=== PATIENT | male | born 1975 | race Caucasian/White ===

== ENCOUNTER → 2017-02-14 | Outpatient (CLI) | payer BC ==
[~2017-02-14] MED LIST: ACET-1256 PO; EFFSR75 PO; GLUCTAB18 PO; IBUP-1449 PO; LITH1TAB10 PO; MULT-506 PO; NICO2GUM7; OMEG10007 PO; OSTEO BI-FLEX; OXYC-57 PO; PRLSR20 PO; QUET-206 PO; QUET1TAB37 PO; ZNTT/150 PO
--- NOTE | 2017-02-14 10:56 | DIAGNOSTIC IMAGING REPORT ---
LUMBAR SPINE 5 VIEWS HISTORY: Pain ABDOMINAL PAIN COMPARISON: 10/15/2014 FINDINGS: There is no fracture. No subluxation. Mild degenerative disc change throughout. IMPRESSION: Mild degenerative disc change. No acute process. No change from the prior study. Electronically signed by: Matt Roberts M.D. 02/14/2017 10:55 AM Dictated Date/Time: 02/14/2017 10:54 AM
--- NOTE | 2017-02-14 11:03 | DIAGNOSTIC IMAGING REPORT ---
KUB CLINICAL HISTORY: Generalized abdominal pain. FINDINGS: An AP supine abdominal radiograph is obtained No prior studies are available for comparison at the time of dictation. There is a nonobstructed abdominal bowel gas pattern. No evidence of intraperitoneal free air is seen on this supine view. There is no radiographic evidence of nephrolithiasis. Small phleboliths are noted in the pelvis. The bony structures appear intact. IMPRESSION: No acute abnormality is identified. Electronically signed by: Jorge Jaimes M.D. 02/14/2017 11:01 AM Dictated Date/Time: 02/14/2017 11:00 AM
[2017-02-14 12:52] LABS: BASO % 0.1 %; BASO ABS # 0.01 K/uL (0-0.2); COMPLETE YES; EOS % 1.3 %; IG% 0.4 %; LYMPH % 21.5 %; LYMPH ABS # 1.65 K/uL (1.2-3.4); MEAN CELL VOLUME 88.5 fL (80-100); MEAN CORPUSCULAR HEMOGLOBIN 31.3 pg (25-34); MEAN CORPUSCULAR HGB CONC 35.4 g/dl (32-36); MEAN PLATELET VOLUME 10.4 fL (7.4-10.4); MONO % 7.4 %; NEUT % 69.3 %; PLATELET COUNT 213 K/uL (130-400); WHITE BLOOD COUNT 7.66 K/uL (4.8-10.8)
[2017-02-14 13:03] LABS: PARTIAL THROMBOPLASTIN RATIO 1.1; PROTHROMBIN TIME (PATIENT) 10.8 SECONDS (9.0-12.0)
[2017-02-14 13:29] LABS: CALCIUM 9.4 mg/dl (8.5-10.1)
[2017-02-14 13:30] LABS: ALT/SGPT 43 U/L (12-78); AMYLASE 61 U/L (25-115); AST/SGOT 20 U/L (15-37); BLOOD UREA NITROGEN 20 mg/dl (7-18); BUN/CREATININE RATIO 15.2 (10-20); CARBON DIOXIDE 27 mmol/L (21-32); CHLORIDE 106 mmol/L (98-107); CHOLESTEROL 218 mg/dl (0-200); GLUCOSE 98 mg/dl (70-99); POTASSIUM 4.5 mmol/L (3.5-5.1); SODIUM 140 mmol/L (136-145); TRIGLYCERIDES 216 mg/dl (0-150); VERY LOW DENSITY LIPOPROT CALC 43 mg/dl
[2017-02-14 13:31] LABS: ALB/GLOB RATIO 1.5 (0.9-2); ALKALINE PHOSPHATASE 75 U/L (45-117); CHOLESTEROL/HDL RATIO 5.3; HDL CHOLESTEROL 41 mg/dl; LDL CHOLESTEROL CALCULATED 134 mg/dl
== END | disposition home or self-care (01) ==
LOC: C.LABPVFM 10:22
PROVIDERS: ATTEND Family Medicine
DX: R10.9 Unspecified abdominal pain (principal); E78.2 Mixed hyperlipidemia; K62.5 Hemorrhage of anus and rectum

== ENCOUNTER → 2017-02-15 | Outpatient (CLI) | payer BC ==
--- NOTE | 2017-02-15 09:58 | DIAGNOSTIC IMAGING REPORT ---
ABDOMINAL ULTRASOUND COMPLETE HISTORY: Generalized abdominal pain.. COMPARISON: None. FINDINGS: Pancreas: The pancreas demonstrates a normal echotexture. Liver: No hepatic masses. Small echogenic area near the diego hepatis favors focal fat. Gallbladder: Multiple polyps seen throughout the gallbladder with the largest measuring 1 cm. There are greater than 10 polyps. CBD: 3 mm. Kidneys: No hydronephrosis. Spleen: Enlarged measuring 14.5 cm in length. Aorta: Normal in caliber. IVC: Patent. IMPRESSION: 1. Splenomegaly. 2. Multiple gallbladder polyps with the largest measuring 1 cm. Surgical consultation is advised. Electronically signed by: Manny Rg M.D. 02/15/2017 9:57 AM Dictated Date/Time: 02/15/2017 9:54 AM
== END | disposition home or self-care (01) ==
LOC: C.ULTR 08:59
PROVIDERS: ATTEND Family Medicine
DX: R10.9 Unspecified abdominal pain (principal); R16.1 Splenomegaly, not elsewhere classified

== ENCOUNTER 2017-03-29 10:44 | Day surgery (SDC) | payer BC ==
[2017-03-20 15:35] VITALS: BMI 26.0
[~2017-03-29] VITALS: Ht 188 cm; Wt 94.0 kg
[~2017-03-29 10:44] MED LIST changes: -EFFSR75 PO; +LACTATED RINGER'S 1000ML 1,000 ML IV SCH; -LITH1TAB10 PO; -NICO2GUM7; -OMEG10007 PO; -OSTEO BI-FLEX; -OXYC-57 PO; -QUET-206 PO; -QUET1TAB37 PO; -ZNTT/150 PO
[2017-03-29 10:58] VITALS: BP 132/72; PULSE 68; TEMP 36.8; O2SAT 94; Ht 188 cm; Wt 94.0 kg
[2017-03-29] MEDS ORDERED: FENTANYL CITRATE INJ 50 MCG/1 ML 2 ML VIAL ONE (14:53)
[2017-03-29] MEDS ORDERED: MIDAZOLAM HCL 1 MG/ML 2ML VIAL ONE (14:53)
--- NOTE | 2017-03-29 15:32 | History & Physical Bridge Note ---
H&P Re-Evaluation Bridge Note: I have examined the patient, reviewed the History & Physical and in the interval since the performance of the History & Physical I have noted the following changes of clinical significance: No changes noted pt seen SO at bedside
[2017-03-29] MEDS ORDERED: CONRAY 60% 50 ML VIAL ONE (15:39)
[2017-03-29] MEDS ORDERED: LIDOCAINE/EPINEPHRINE 1% 20 ML VIAL ONE (15:39)
--- NOTE | 2017-03-29 15:41 | Discharge Instructions ---
Discharge Instructions Date of Service Mar 29, 2017. Visit Reason for Visit: Gallbladder Polyp Discharge Discharge Diagnosis / Problem: laparoscopic cholecystectomy Discharge Goals Goal(s): Decrease discomfort Activity Recommendations Activity Limitations: as noted below Lifting Limitations: no more than 10 pounds Shower/Bathe: tomorrow Driving or Machine Use: resume 3 days after discharge Anesthesia . Post Anesthesia Instructions: If you have had General Anesthesia or IV Sedation: * Do not drive today. * Resume driving when surgeon permits. * Do not make important decisions or sign legal documents today. * Call surgeon for: 1. Temperature elevations greater than 101 degrees F. 2. Uncontrollable pain. 3. Excessive bleeding. 4. Persistent nausea and vomiting. 5. Medication intolerance (nausea, vomiting or rash). * For nausea and vomiting use only clear liquids such as: tea, soda, bouillon until nausea subsides, then gradually increase diet as tolerated. * If you have any concerns or questions, call your surgeon's office. If physician is unavailable and it is an emergency, call 911 or go to the nearest emergency room. . Instructions / Follow-Up Instructions / Follow-Up Dr. Gillis in 1 week, call [phone] for any questions or if you need to schedule Diet Recommendations Recommended Home Diet: no limitations Pending Studies Studies pending at discharge: no Medical Emergencies . Who to Call and When: Medical Emergencies: If at any time you feel your situation is an emergency, please call 911 immediately. . Non-Emergent Contact Non-Emergency issues call your: Surgeon Call Non-Emergent contact if: you have a fever, temperature is above 101.5, your pain is not controlled, wound has increased redness, you have any medication questions . . "Provider Documentation" section prepared by John Mayers. .
[2017-03-29] MEDS ORDERED: OXYC-57 PO (15:42)
[2017-03-29] MEDS ORDERED: ATROPINE SULFATE 0.1 MG/ML 5ML SYR IV PRN (16:00)
[2017-03-29] MEDS ORDERED: ONDANSETRON INJ 2 MG/ML 2 ML VIAL IV PRN ×2 (16:00→17:15)
[2017-03-29] MEDS ORDERED: PHENYLEPHRINE 100MCG/ML 5ML SYR IV PRN (16:00)
[2017-03-29] MEDS ORDERED: EpHEDrine SULFATE INJ 50 MG/ML AMP IV PRN (16:00)
[2017-03-29] MEDS ORDERED: HYDROmorphone INJ 2 MG/ML SYR/VIAL ONE (16:27)
[2017-03-29] MEDS ORDERED: LIDOCAINE HCL 2% 2 ML VIAL (20MG/ML) ONE (16:49)
[2017-03-29] MEDS ORDERED: KETOROLAC TROMETHAMINE 30 MG/ML VIAL ONE (16:49)
[2017-03-29] MEDS ORDERED: DEXAMETHASONE SOD INJ 4 MG/ML VIAL ONE (16:49)
[2017-03-29] MEDS ORDERED: EpHEDrine SULFATE INJ 50 MG/ML AMP ONE (16:49)
[2017-03-29] MEDS ORDERED: NEOSTIGMINE METHYLSULFATE 5 MG/5 ML SYR ONE (16:49)
[2017-03-29] MEDS ORDERED: PROPOFOL IV EMULSION 10 MG/ML 20 ML VIAL IV ONE (16:49)
[2017-03-29] MEDS ORDERED: ROCURONIUM BROMIDE 10 MG/ML 5 ML VIAL ONE (16:49)
[2017-03-29] MEDS ORDERED: GLYCOPYRROLATE INJ 0.2 MG/ML VIAL ONE (16:49)
[2017-03-29] MEDS ORDERED: ONDANSETRON INJ 2 MG/ML 2 ML VIAL ONE (16:49)
--- NOTE | 2017-03-29 17:09 | [facility] Operative Report ---
Operative Report Operative Date Mar 29, 2017. Pre-Operative Diagnosis Gallbladder polyp Post-Operative Diagnosis Same Procedure(s) Performed Laparoscopic Cholecystectomy attempted cholangiogram Surgeon Dr Gillis Computer Artist Surgeon(s) John Mayers PA-C Estimated Blood Loss 2ml Findings ccc Specimens A. Gallbladder Indications pain with pizza Description of Procedure OR summary dictated confirmation number [id number] I attest to the content of the Intraoperative Record and any orders documented therein. Any exceptions are noted below.
[2017-03-29] MEDS ORDERED: OXYCODONE/ACETAMINOPHEN 5-325 TAB PO PRN (17:15)
[2017-03-29] MEDS ORDERED: MoRPHine SULFATE 2 MG/ML CARP IV PRN (17:15)
[2017-03-29] MEDS ORDERED: LACTATED RINGER'S 1000ML 1,000 ML IV SCH (17:15)
[2017-03-29] MEDS: HYDROmorphone INJ 2 MG/ML SYR/VIAL IV PRN ×4 (17:24→17:39)
--- NOTE | 2017-03-29 17:50 | Anesthesiology Progress Note ---
Anesthesia Post Op Note Date & Time Mar 29, 2017 at 17:50 Vital Signs Pain Intensity: 4 Vital Signs Past 12 Hours Date Time Temp Pulse Resp B/P (MAP) Pulse Ox O2 Delivery O2 Flow Rate FiO2 03/29/17 17:45 36.3 54 16 137/72 100 Oxymask 3 03/29/17 17:35 58 16 147/79 100 Oxymask 5 03/29/17 17:25 57 16 171/80 100 Oxymask 10 03/29/17 17:16 36.2 73 20 153/95 100 Oxymask 10 03/29/17 10:58 36.8 68 18 132/72 (92) 94 Room Air Notes Mental Status: alert / awake / arousable, participated in evaluation Pt Amnestic to Procedure: Yes Nausea / Vomiting: adequately controlled Pain: adequately controlled Airway Patency, RR, SpO2: stable & adequate BP & HR: stable & adequate Hydration State: stable & adequate Anesthetic Complications: no major complications apparent
[2017-03-29 17:55] VITALS: BP 137/74; PULSE 57; TEMP 36.5; O2SAT 96
--- NOTE | 2017-03-29 18:03 | Medical Student: [facility] ---
Immediate Operative Summary Operative Date Mar 29, 2017. Pre-Operative Diagnosis Multiple gallbladder polyps Post-Operative Diagnosis See above Procedure(s) Performed Laparascopic cholecystectomy with attempted cholangiogram Surgeon Dr. Gillis Balance Wheel Screw Hole Driller Surgeon(s) Bryce Mayers PA-C Estimated Blood Loss 2cc Findings Gallbladder Gallbladder cholesterol polyps Specimens Gallbladder, gallbladder polyps Anesthesia General Complication(s) None Disposition Recovery Room / PACU
[2017-03-29 18:30] VITALS: BP 144/66; PULSE 64; O2SAT 96
[2017-03-29 19:05] VITALS: BP 127/59; PULSE 55; O2SAT 97
[2017-03-29 20:00] VITALS: BP 122/66; PULSE 45; TEMP 36.1; O2SAT 99
--- NOTE | 2017-03-29 22:15 | OPERATIVE REPORT ---
DATE OF OPERATION: 03/29/2017 SURGEON: Dr. Gillis. FLOOR POLISHER: Bryce Mayers PA-C. PREOPERATIVE DIAGNOSES: Chronic cholecystitis and gallbladder polyps. POSTOPERATIVE DIAGNOSES: Same. PROCEDURE: Laparoscopic cholecystectomy, intraoperative cholangiogram attempted. SUMMARY: After induction of general endotracheal anesthesia, the patient's abdomen was prepped with Betadine scrubbing solution and properly draped. I made a small incision supraumbilically, sufficient enough to place a Veress needle followed by 5-mm trocar. Point of entry inspected and no injury identified. Under direct visualization, a 5 mm epigastric, two 5-mm subcostal ports with preemptive local analgesia of 1% Xylocaine with epinephrine. When the gallbladder was identified, we placed it under traction and the adhesions to the gallbladder, which was chronic in nature, were taken down using blunt dissection. On exposure of the cystic duct, common bile duct, 2 structures going into the gallbladder, the first structure was kind of small, I thought that may have been the artery, we doubly clipped and divided; the larger structure that I thought may have been the cystic duct, but actually this turned out to be the cystic artery, which we doubly clipped and divided. The patient also had a posterior branch of the cystic artery. The initial duct that we had divided was very small, it went right into the gallbladder; therefore, it was unlikely that the patient could even have been unable to get a cholangiogram in that area. At this point, the gallbladder was removed in antegrade fashion, using electrocautery. Prior to freeing the gallbladder from the liver bed, the subhepatic area was checked for hemostasis and appeared satisfactory. We cauterized the small bleeder in the epigastric area intraabdominally, then placed a camera in subcostal ports to visualize the umbilical opening. No bleeding was identified. Individual trocars removed and lastly the umbilical trocar. Steri-Strips applied. The procedure was tolerated well by the patient and was taken to recovery room in good condition. I attest to the content of the Intraoperative Record and any orders documented therein. Any exception s are noted below.
== END 2017-03-29 20:25 | disposition home or self-care (01) ==
LOC: C.ACU 10:44
PROVIDERS: ATTEND Surgery
DX: K81.1 Chronic cholecystitis (principal); K82.4 Cholesterolosis of gallbladder; E78.2 Mixed hyperlipidemia; Z87.891 Personal history of nicotine dependence; Z79.899 Other long term (current) drug therapy

== ENCOUNTER → 2017-06-04 | Outpatient (CLI) | payer BC ==
[~2017-06-04] MED LIST changes: -ACET-1256 PO; -LACTATED RINGER'S 1000ML 1,000 ML IV SCH; +OXYC-57 PO
[2017-06-04 12:30] LABS: BASO % 0.2 %; BASO ABS # 0.01 K/uL (0-0.2); COMPLETE YES; EOS % 4.9 %; HEMATOCRIT 44.6 % (42-52); IG% 0.3 %; LYMPH % 33.5 %; MEAN CELL VOLUME 87.3 fL (80-100); MEAN CORPUSCULAR HEMOGLOBIN 29.9 pg (25-34); MEAN CORPUSCULAR HGB CONC 34.3 g/dl (32-36); MEAN PLATELET VOLUME 10.9 fL (7.4-10.4); MONO % 6.4 %; NEUT % 54.7 %; PLATELET COUNT 208 K/uL (130-400); RED BLOOD COUNT 5.11 M/uL (4.7-6.1); WHITE BLOOD COUNT 6.27 K/uL (4.8-10.8)
[2017-06-04 13:29] LABS: LYME DISEASE AB IGG NEG (NEG); LYME DISEASE AB IGM NEG (NEG)
== END | disposition home or self-care (01) ==
LOC: C.LABPVFM 10:13
PROVIDERS: ATTEND Family Medicine Adult Medicine
DX: R51 Headache (principal)

== ENCOUNTER → 2017-06-07 | Outpatient (CLI) | payer BC ==
--- NOTE | 2017-06-07 14:21 | DIAGNOSTIC IMAGING REPORT ---
CT HEAD WITHOUT CONTRAST (CT) CLINICAL HISTORY: R51 Headache left sided [id number] COMPARISON STUDY: No previous studies for comparison. TECHNIQUE: Axial CT of the brain is performed from the vertex to the skull base. IV contrast was not administered for this examination. A dose lowering technique was utilized adhering to the principles of ALARA. CT DOSE: 788.63 mGycm FINDINGS: No intra or extra-axial mass lesions are visualized. There is no CT evidence of acute cortical infarction. There is no evidence of midline shift. There is no acute hemorrhage. No calvarial fractures are visualized. There is no evidence of pathologic ventricular dilatation. There is no evidence of acute sinusitis IMPRESSION: No acute intracranial findings Electronically signed by: Vince Castro M.D. 06/07/2017 2:20 PM Dictated Date/Time: 06/07/2017 2:19 PM
== END | disposition home or self-care (01) ==
LOC: C.CTS 13:58
PROVIDERS: ATTEND Family Medicine Adult Medicine
DX: R51 Headache (principal)

== ENCOUNTER → 2018-03-13 | Outpatient (CLI) | payer OTHER ==
[~2018-03-13] MED LIST changes: -OXYC-57 PO
[2018-03-13 17:15] LABS: HEMATOCRIT 42.5 % (42-52); HEMOGLOBIN 15.2 g/dL (14.0-18.0); MEAN CELL VOLUME 86.7 fL (80-100); MEAN CORPUSCULAR HGB CONC 35.8 g/dl (32-36); MEAN PLATELET VOLUME 10.6 fL (7.4-10.4); PLATELET COUNT 235 K/uL (130-400); RED CELL DISTRIBUTION WIDTH CV 12.4 % (11.5-14.5); RED CELL DISTRIBUTION WIDTH SD 39.6 fL (36.4-46.3); WHITE BLOOD COUNT 7.34 K/uL (4.8-10.8)
[2018-03-13 17:55] LABS: ALBUMIN 4.5 gm/dl (3.4-5.0); ALKALINE PHOSPHATASE 74 U/L (45-117); ALT/SGPT 48 U/L (12-78); AST/SGOT 31 U/L (15-37); BLOOD UREA NITROGEN 19 mg/dl (7-18); CALCIUM 8.8 mg/dl (8.5-10.1); CARBON DIOXIDE 25 mmol/L (21-32); CHOLESTEROL 224 mg/dl (0-200); CREATININE 0.99 mg/dl (0.60-1.40); GLUCOSE 89 mg/dl (70-99); LDL CHOLESTEROL CALCULATED 138 mg/dl; SODIUM 139 mmol/L (136-145); TOTAL PROTEIN 7.7 gm/dl (6.4-8.2)
== END | disposition home or self-care (01) ==
LOC: C.LABPVFM 14:55
PROVIDERS: ATTEND Family Medicine
DX: Z00.00 Encounter for general adult medical examination without abnormal findings (principal)